=== PATIENT | female | born 1955 ===

== ENCOUNTER 2016-10-06 05:40 | Day surgery (SDC) | payer MEDICAID ==
[2016-10-06] VITALS (8 sets, daily range): BP systolic 103–134; BP diastolic 55–75; PULSE 70–88; RESP 15–20; O2SAT 96–100
[~2016-10-06] VITALS: Ht 157.5 cm; Wt 77.8 kg
[~2016-10-06 05:40] MED LIST: ALBU8.5H2 INHALATION; CHOL10008 PO; GABA600T2 PO; OXYC-466 PO
[2016-10-06] MEDS ORDERED: Ondansetron 2 mg/mL 2 mL Inj ONE (05:41)
[2016-10-06] MEDS ORDERED: fentaNYL-PF 50 mCg/mL 2 mL Inj ONE (05:41)
[2016-10-06] MEDS ORDERED: Propofol 10,000 mCg/mL 20 mL Inj ONE (05:41)
[2016-10-06] MEDS ORDERED: Dexamethasone 4 mg/mL Inj ONE (05:41)
[2016-10-06] MEDS ORDERED: Lactated Ringer's 1,000 ML IV ONE ×2 (05:44→07:14)
[2016-10-06] MEDS ORDERED: Lactated Ringer's 500 ML IV PRN (07:14)
[2016-10-06] MEDS ORDERED: Lactated Ringer's 1,000 ML IV SCH (07:14)
[2016-10-06] MEDS ORDERED: HYDROmorphone 1 mg/mL Inj IVPUSH PRN (07:15)
[2016-10-06] MEDS ORDERED: EPHEDrine Sulfate 50 mg/mL Inj IVPUSH PRN (07:15)
[2016-10-06] MEDS ORDERED: fentaNYL-PF 50 mCg/mL 2 mL Inj IVPUSH PRN (07:15)
[2016-10-06] MEDS ORDERED: Labetalol 5 mg/mL 4 mL Inj IV PRN (07:15)
[2016-10-06] MEDS ORDERED: hydrALAZINE 20 mg/mL Inj IVPUSH PRN (07:15)
[2016-10-06] MEDS ORDERED: Atropine 0.4 mg/mL Inj IVPUSH PRN (07:15)
[2016-10-06] MEDS ORDERED: MetoCLOpramide 5 mg/mL 2 mL Inj IVPUSH PRN (07:15)
[2016-10-06] MEDS ORDERED: Ondansetron 2 mg/mL 2 mL Inj IVPUSH PRN (07:15)
[2016-10-06] MEDS ORDERED: Phenylephrine 10,000 mCg/mL Inj IVPUSH PRN (07:15)
--- NOTE | 2016-10-06 07:16 | PCM.HPANE ---
Patient Data Surgeon Admitting Provider: Attending Provider:Brady Crum DO Primary Care Physician:Jeane Other Provider:Loreto Partida Anesthesia Reason for Visit Left Knee Adhesive Capsulitis Ht/WT & BMI Height (Feet): 5 Height (Inches): 2.00 Weight (Kilograms): 77.8 Body Mass Index 31.00 Allergies Coded Allergies: ibuprofen (Verified Allergy, Severe, rash, 10/01/16) Past Anesthesia History Anesthesia History: Denies:: Abnormal Airway, Anesthesia Reactions, Difficult Intubation, Fam Anesthesia Reaction, Fam Malignant Hypertherm, Malignant Hyperthermia Diabetes History Hx Diabetes?: No MRSA MRSA: No Medications Hypertension Medication: No Home Meds Incl Beta Jimmy: No Active Scripts oxyCODONE-Acetaminophen 10-325 mg 1 Each Tablet1-2 Tablet PO Q6H PRN For Pain # 30 TABLET Ref 0 Prov:Trish Isaacs MD 08/26/16 Reported Medications Cholecalciferol (Vitamin D3) (Vitamin D3)1,000 Unit Tab.chew1,000 Unit PO DAILY 07/01/16 Gabapentin 600 Mg [id number] Mg PO TID Ref 0 07/01/16 Albuterol HFA (Proair HFA)8.5 Gm Hfa.aer.ad2 Puffs INHALATION Q4H PRN For Shortness of Breath #1 INHALER 07/01/16 Discontinued Reported Medications Meloxicam 15 Mg Bzsyfj47 Mg PO DAILY 30 Days Ref 0 10/01/16 Quetiapine Fumarate (Seroquel)50 Mg Loxtmy25 Mg PO BID Ref 0 07/01/16 Omeprazole 40 Mg Capsule.dr40 Mg PO DAILY Ref 0 07/01/16 Melatonin (Melatonin 1 mg Tablet)1 Each Tablet1-3 Mg PO HS Ref 0 07/01/16 Fluticasone Propionate (Fluticasone Propionate Nasal)16 Gm Onaka.susp2 Onaka NS BID PRN For Congestion #16 GM Ref 0 07/01/16 Cyclobenzaprine 10 Mg Yibmlx71-65 Mg PO HS PRN Spasm Ref 0 07/01/16 Butalbital/Acetamin/Caff 50-300-40 mg 1 Each Capsule1-2 Capsule PO Q4H PRN migraines Ref 0 NTE 6cap/24hr 07/01/16 Discontinued Scripts oxyCODONE 5 Mg Tablet5 Mg PO Q4H PRN For Severe Pain #30 TABLET Prov:Ebonie Riley PA-C 07/09/16 oxyCODONE-Acetaminophen 10-325 mg 1 Each Tablet1 Tab PO Q3H PRN For Pain #90 TABLET Prov:Ebonie Riley PA-C 07/09/16 [Aspirin] 325 MG TABLET No Conflict Kcyzl903 Mg PO BID 40 Days Prov:Ebonie Riley PA-C 07/09/16 History History of ENT Problems?: Yes HEENT History: Denies:: Abnormal Airway Cataracts Difficult Intubation Dysphagia Hearing Problem Sinus Problem TMJ Denture Type: Full- Upper Partial- Lower Hx of Heart Problems?: Yes Cardiovascular History: Denies:: AICD Atrial Fibrillation Chest Pain Congestive Heart Failure Heart Murmur Hypertension Irregular Heartbeat Pacemaker Valvular Heart Disease Other Cardiac History: c/of bruising easily Hx of Respiratory Problem?: Yes Respiratory History: Positive for:: Asthma Use of Inhalers / NEBS Denies:: COPD Cough Hemoptysis Oxygen Administration Pneumonia Tuberculosis Use of C-PAP Machine Hx Neurologic Problems?: Yes Neurological History: Positive for:: Headaches (migraines post concussion) Denies:: CVA Dementia Multiple Sclerosis Parkinson's Disease Other Neurological Pertinent: HX OF CONCUSSION FROM FALL 04/2016 IDIOPATHIC PERIPHERAL NEUROPATHY Hx of GI Problems?: Yes Gastrointestinal History: Positive for:: Gall Bladder Disease (S/P CHLOE) Gastroesphageal Reflux (prior hx of h pylori ) Heartburn Denies:: Cirrhosis Diverticulitis Gastrointestinal Bleeding Hiatal Hernia Rectal Bleeding Hx of Problems?: No Genitourinary History: Denies:: Kidney Stones Urinary Tract Infection Female Hx: Denies:: Currently (S/P C/S) Endometriosis Pelvic Inflammatory Problems with Breasts? Skin History: Denies:: History Skin Disorders? Pressure Ulcers Hx Musculoskeletal Problems?: Yes Musculoskeletal History: Positive for:: Back Injury (chronic back pain ) Degenerative Joint Joint Replacement (S/P LT TKA LT KNEE ADHESIVE CAPSULITIS=CURRENT PROBLEM) Musculoskeletal Trauma (S/P LT KNEE SCOPE) Osteoarthritis Denies:: Systemic Lupus Hx of Psycho/Social Problems?: Yes Psycho Social History: Positive for:: Anxiety Bipolar Disorder Denies:: Hx Depression Hx Surgeries?: Yes (left knee scope, chloe, c section,LT TKA) Hx Any Other Health Problems?: Yes Other History: Denies:: Cancer Endocrine Disease Hospitalization Thyroid Disease History Blood Transfusions: Denies:: Blood Transfusions Hx Diabetes: No Hx Alcohol Use: NoHx Substance Use: No Smoking Status: Former Smoker Have You Smoked inLast 12 mo: No Stop/Bang S-Snoring: Do You Snore Loudly: No T-Tired: feel tired, fatigued: No O-Obsered: Observed not breath: No P-Blood Pressure: treated: No B- Body Mass Index > 35 kg/m2: No A- Age over 50: Yes N- Neck Large Circumference: No G- Gender Male: No TOMA Total Score: 1 TOMA Risk Assessment: Low Risk, <3 Yes Risk Assessment Category Category 1A: Patient has history of documented sleep apnea, and HAS NOT received any narcotic, sedative or anesthesia administration during this stay. Category 1B: Patient has history of documented sleep apnea, and HAS received any narcotic , sedative or anesthesia administration during this stay Category 2: Patient has SUSPECTED Obstructive Sleep Apnea, and HAS received any narcotic , sedative or anesthesia administration during this stay. Category 3: Patient has SUSPECTED Obstructive Sleep Apnea and HAS NOT received narcotic, sedative or anesthesia administration during this stay. Category 4: Outpatient in Procedural Areas with known sleep apnea or who screen positive for High Risk via the STOP/BANG questionnaire. Exam Exam Vital Signs Vital Signs Date Time Temp Pulse Resp B/P Pulse Ox O2 Delivery O2 Flow Rate FiO2 10/06/16 06:05 36.4 78 18 134/75 98 Room Air General Appearance: Alert, Oriented X3, Cooperative, No Acute Distress HEENT/AIRWAY: MP 2, Other (no upper teeth, lower teeth not loose) Lungs: Clear to Auscultation, Normal Air Movement Heart: Exam Unremarkable, Regular Rate/Rhythm, No Murmurs/Rubs/Gallops Meds/Labs/Diagnostics Admission Meds Current Medications Lactated Ringer's (Lr) 1,000 ml @ ud STK-MED ONCE IV Last administered on 10/06t 05:44; Start 10/06/16 at 05:44; Stop 10/06/16 at 05:45; Status DC Plan Impression Patient chart reviewed, patient interviewed and anesthestic plan with risks, benefits, and alternatives discussed, and informed consent obtained. NPO Status: MN ASA Physical Status: ASA2 Mod Systemic Disease Anesthetic Plan: GA Bene/Risks/Altern/Consents: Yes HP Complete Prior to Induction: Yes Hejtmanek,Brady R MD Oct 06, 2016 06:59
[2016-10-06] MEDS ORDERED: oxyCODONE-Acetamin 5-325 mg Tablet PO PRN (07:55)
--- NOTE | 2016-10-06 07:57 | PCM.ANEP1 ---
Post Anesthesia Phase 1 PACU Phase 1 Assessment Vital Signs Vital Signs Date Time Temp Pulse Resp B/P Pulse Ox O2 Delivery O2 Flow Rate FiO2 10/06/16 07:45 74 18 103/55 99 Room Air 10/06/16 07:42 36.6 70 18 107/61 100 Simple Mask 8 10/06/16 06:05 36.4 78 18 134/75 98 Room Air Anesthetic Administered: GA Level of Alertness: Awake, talking JONES's with Equal Strength: Yes Pain: No Nausea or Vomiting: No Oxygen Delivery: Simple Mask Lungs: Clear to Auscultation, Normal Air Movement Brady Ovalle MD Oct 06, 2016 07:57
--- NOTE | 2016-10-06 07:59 | PCM.ANEP2 ---
Post Anesthesia Evaluation ASA/CMS Post Anesthesia VS in Patient's Normal Range?: Yes Resp Stable; Airway Patent?: Yes CV Function & Hydration Stable: Yes Mental Status Recovered?: Yes Pain control Satisfactory?: Yes N/V Control Satisfactory?: Yes Brady Ovalle MD Oct 06, 2016 07:59
--- NOTE | 2016-10-06 08:10 | OP ---
[address] [address] OPERATIVE REPORT PATIENT: TIFFANY DOMINGO : 1955 MR#: [id number] ADMIT: 10/06/2016 JOB ID: [id number] DATE OF SURGERY: 10/06/2016 PREOPERATIVE DIAGNOSIS(ES): Left knee adhesive capsulitis, status post total knee arthroplasty. POSTOPERATIVE DIAGNOSIS(ES): Left knee adhesive capsulitis, status post total knee arthroplasty. PROCEDURE: Left knee manipulation under anesthesia. SURGEON: Brady Crum DO PAPER BAG MAKING MACHINIST: None. INDICATION: The patient is a 60-year-old female who is status post left total knee arthroplasty on June 27, 2016, who has had difficulty with her range of motion and stiffness despite physical therapy. We discussed treatment options for this and she wished to proceed with a manipulation under anesthesia. We discussed the risks, benefits, and possible complications of the procedure. All questions were answered. She wished to proceed. PROCEDURE IN DETAIL: The patient is brought to the operating room. She was given an LMA general anesthetic. Her range of motion was checked under anesthesia, and was actually fairly good, about 0-115 degrees. I did a gentle manipulation under anesthesia and was able to get her to 0-140 degrees range of motion, and help mobilize her patella. She tolerated the procedure well. Blood loss was none. POSTOPERATIVE PROTOCOL: Will have the patient continue to work on her range of motion and work aggressively on this. Follow up in the clinic in two weeks for recheck. She was given a prescription for Percocet, #90, to be dispensed 45 for a week, with no refills, and will follow up and discuss further pain control at her postop visit.
== END 2016-10-06 12:12 | disposition home or self-care (01) ==
LOC: SAS 05:40
PROVIDERS: ATTEND Orthopaedic Surgery
DX: T84.89XS Other specified complication of internal orthopedic prosthetic devices, implants and grafts, sequela (principal); J45.909 Unspecified asthma, uncomplicated; G60.9 Hereditary and idiopathic neuropathy, unspecified
CPT/HCPCS: 27570; J1100; J2405; J7120

== ENCOUNTER 2017-04-11 22:49 | Emergency (ER) | payer MEDICAID ==
[~2017-04-11] VITALS: Ht 162.6 cm; Wt 68.2 kg
[2017-04-11 23:16] VITALS: BP 112/64; PULSE 64; RESP 19; O2SAT 100
--- NOTE | 2017-04-11 23:23 | ED.REPORT ---
HPI-Abd Pain F 40 and Over Date of Service Apr 11, 2017 ED Provider: Dr. Joe Moreau The patient is a 61 year old female who presents to the ED due to a rectal prolapse causing severe abdominal pain and cramping. The pt cannot sit down without pain. She c/o associated rectal bleeding. Pt denies any other symptoms including fever, chills, incontinence, dysuria, headache, difficulty breathing, extremity pain, weakness, and numbness. Nursing Notes Stated Complaint: ABDOMINAL PAIN Chief Complaint: Female Abdominal Pain Nursing Notes Reviewed: Yes Allergies: Coded Allergies: ibuprofen (Verified Allergy, Severe, rash, 10/01/16) Scheduled Cholecalciferol (Vitamin D3) (Vitamin D3) 1,000 Unit Tab.chew 1,000 UNIT PO DAILY Gabapentin (Gabapentin) 600 Mg Tablet 600 MG PO TID Scheduled PRN Albuterol HFA (Proair HFA) 8.5 Gm Hfa.aer.ad 2 PUFFS INHALATION Q4H PRN PRN For Shortness of Breath oxyCODONE-Acetaminophen 10-325 mg (oxyCODONE-Acetaminophen 10-325 mg) 1 Each Tablet 1-2 TABLET PO Q6H PRN PRN For Pain General Time Seen by MD: 23:22 Chief Complaint Other (rectal prolapse) Hx Obtained From: Patient Arrived By: Ambulance Sudden in Onset?: Yes Pertinent Negative: Pt denies other symptoms Recent Healthcare: No recent doctor visit, No recent hospitalization Similar Sx Previous: No Past Medical History Past Medical History Reports: Asthma Reports: Migraines Past Surgical History Reports: , Cholecystectomy Reports: Knee replacement Smoking History Former Smoker Ambulatory Status Walker Review of Systems Constitutional: Denies: Chills, Fever Respiratory: Denies: Shortness of breath Female: Denies: Dysuria, Incontinence Complete sys rev & neg: except as marked. Skin: Reports Swelling (rectal prolapse) Neurologic: Denies: Headache, Numbness, Weakness Physical Exam Vital Signs Vital Signs (First) Date Time Temp Pulse Resp B/P Pulse Ox O2 Delivery O2 Flow Rate FiO2 04/11/17 23:16 36.9 64 19 112/64 100 Room Air Initial VS: Reviewed General/Constitutional: Awake, Alert, Cooperative Distress / Hydration: Positive: Distress mild Respiratory / Chest: Atraumatic, Breath sounds NL, Breath sounds = bilat Cardiovascular: Heart rate NL, Regular rhythm, Heart sounds NL Abdomen: Atraumatic, Non-tender Back: Atraumatic, Full range of motion, Non-tender Head / Eyes: Atraumatic, Normocephalic Skin: Atraumatic, Color NL, No rash Rectum / Perineum Abnl: Positive: Rectal prolapse present Upper Extremity / MS: Atraumatic, Full range of motion, No deformity Wrist / Hand: Atraumatic, Full range of motion, No deformity Lower Extremity / Pelvis / MS: Atraumatic, Full range of motion, No deformity, Neurologic intact Ankle / Foot: Atraumatic, Full range of motion, No deformity Interpretation & Diagnostics Lab Results Interpretation Result Diagram: 04/11/17 2345 04/11/17 2345 Test 04/11/17 23:45 White Blood Count 4.7th/mm3 (3.8-10.1) Red Blood Count 3.85mil/mm3 (3.90-5.20) Hemoglobin 10.3g/dL (12.0-15.6) Hematocrit 32.1% (35.0-46.0) Mean Corpuscular Volume 83.4fL (81-100) Mean Corpuscular Hemoglobin 26.8pg (27.0-35.0) Mean Corpuscular Hemoglobin Concent 32.1% (32.0-37.0) Red Cell Distribution Width 13.9% (12.3-15.4) Platelet Count 260bil/L (150-400) Neutrophils (%) (Auto) 61.9% (40-74) Lymphocytes (%) (Auto) 22.6% (14-46) Monocytes (%) (Auto) 10.5% (4-12) Eosinophils (%) (Auto) 4.1% (0-5) Basophils (%) (Auto) 0.9% (0-3) Sodium Level 144mEq/L (134-144) Potassium Level 4.0mEq/L (3.5-5.2) Chloride Level 107mEq/L (97-108) Carbon Dioxide Level 24mmol/L (18-29) Blood Urea Nitrogen 10mg/dL (8-27) Creatinine 0.65mg/dL (0.57-1.00) Estimat Glomerular Filtration Rate 133mL/min (>59) Glucose Level 103mg/dL (60-99) Calcium Level 8.7mg/dL (8.5-10.1) Total Bilirubin 0.2mg/dL (0.0-1.2) Aspartate Amino Transf (AST/SGOT) 18U/L (0-50) Alanine Aminotransferase (ALT/SGPT) 10U/L (0-32) Alkaline Phosphatase 49U/L (25-165) Total Protein 6.4g/dL (6.4-8.4) Albumin 3.8g/dL (3.4-5.0) CT Abd / Pelvis Interpretation IMPRESSION: mild rectal prolapse Interpretation / Wet Read by: Interpret - Radiologist Re-Eval/Medical Decision Med Decision/Clinical Course 1120: Rectal prolapse easily reduced. 1229: rectal prolapse remains reduced but she is still having moderate to severe RLQ pain Re-Evaluation/Progress #1: Time of Eval: 23:30 Re-Evaluation/Progress Note: Rectal prolapse easily reduced. Re-Evaluation/Progress #2: Time of Eval: 12:29 Patient Status: Condition improved Re-Evaluation/Progress Note: Pt rechecked. Rectal prolapse remains reduced but she is still having moderate to severe RLQ pain. Plan for scan. Consultation : Referral / Consult Name: Lenard Lopez MD Call Returned at: 01:17 Senior Partner: Agrees with eval, Agrees with plan Note: Case discussed. Dr. Lopez does not recommend surgery at the moment. Counseled Regarding: Diagnosis, Lab results, Need for follow-up, When/why to return to ED Discharge & Departure Primary Impression: Rectal prolapse Disposition: Home Discharge Condition All VS Reviewed: Yes Condition: Stable Patient Instructions: Rectal Prolapse (ED) Additional Instructions: Thank you for entrusting us with your care today. You have a rectal prolapse. Call the surgical clinic to set up a follow up appointment as soon as possible. Follow a liquid diet for the next 48 hrs. Take MiraLAX twice daily to prevent constipation. You may take 1-2 Percocet every 6 hours as directed for severe pain. Do not drive or drink alcohol while taking the Percocet. Promptly reduce the prolapse if it happens again. Return to the Emergency Department if you experience any new or worsening symptoms. I hope you feel better soon! Referrals: NOPCP (PCP) Lenard Lopez MD [facility] Scribe Attestation Portion of this note were transcribed by Manasa Naidu. I, Dr. Moreau, personally performed the history, physical exam, and medical decision-making: I reviewed and confirmed the accuracy for the information in the transcribed note. Signed by: mariangel Inman, 04/12/17 0200 copies to: Lenard Lopez MD; [facility] Joe Moreau DO Apr 11, 2017 23:22 Manasa Naidu Apr 11, 2017 23:28
[2017-04-11] MEDS ORDERED: Ondansetron 2 mg/mL 2 mL Inj IVPUSH PRN (23:30)
[2017-04-11] MEDS ORDERED: Lidocaine 4% 4 mL Laryng-O-Jet Top Soln MUC_MEMBRM ONE (23:30)
[2017-04-11 23:49] VITALS: BP 112/69; PULSE 80; RESP 16; O2SAT 99
[2017-04-11] MEDS: HYDROmorphone 0.5 mg/0.5 mL iSecure Syringe IVPUSH PRN (23:49)
[2017-04-12 00:08] LABS: BASOPHILS % (AUTO) 0.9 % (0-3); EOSINOPHILS % (AUTO) 4.1 % (0-5); MONOCYTES % (AUTO) 10.5 % (4-12); Mean Corpuscular Hemoglobin 26.8 pg (27.0-35.0); Mean Corpuscular Volume 83.4 fL (81-100); NEUTROPHILS % (AUTO) 61.9 % (40-74); Platelet Count 260 bil/L (150-400)
[2017-04-12] MEDS ORDERED: Sodium Chloride LOK Flush 10 mL Syringe IVFLUSH SCH (00:30)
[2017-04-12] MEDS: HYDROmorphone 0.5 mg/0.5 mL iSecure Syringe IVPUSH PRN (01:26)
[2017-04-12] MEDS ORDERED: _oxyCODONE/APAP 5-325 mg Tablet PO PRN (01:40)
[2017-04-12 02:21] VITALS: BP 118/70; PULSE 82; RESP 17; O2SAT 100
--- NOTE | 2017-04-12 08:24 | DRSVH ---
PROCEDURE: CT ABDOMEN AND PELVIS WITH CONTRAST ([id number]) INDICATIONS: RLQ pain, rectal prolapse now reduced TECHNIQUE: After the administration of intravenous contrast, 5 mm thick sections acquired from the diaphragm to the symphysis. 5 mm coronal and sagittal reformats were acquired. For radiation dose reduction, the following was used: automated exposure control, adjustment of mA and/or kV according to patient siz e. COMPARISON: None. FINDINGS: Image quality: Excellent. ABDOMEN: Lung bases: There is a lingular scar or atelectasis. Heart size is normal. Small hiatal hernia. Solid organs: Liver and spleen are normal in size and enhancement. Gallbladder is surgically absent . Biliary system is non dilated. Pancreas enhances normally. No adrenal nodules. Kidneys demonstr ate normal size and enhancement, without hydronephrosis. Peritoneum and bowel: Bowel loops demonstrate normal wall thickness and caliber. Appendix is normal . No free fluid or air. Nodes and vessels: No retroperitoneal or mesenteric adenopathy by size criteria. Aorta and inferior vena cava are normal in size. Miscellaneous: There is a small fat-containing ventral hernia. PELVIS: Genitourinary: Bladder wall thickness is normal. Miscellaneous: No inguinal hernias or adenopathy. Bones: No suspicious bony lesions. No vertebral body compression fractures. IMPRESSION: 1. Normal appendix. No CT findings to explain right lower quadrant pain. 2. A small fat-containing ventral hernia. 3. Small hiatal hernia. No significant discrepancy with the steward/stewardess night radiology preliminary report. Dictated by: Nena Keane M.D. on 04/12/2017 at 8:15 Approved by: Nena Keane M.D. on 04/12/2017 at 8:22
== END 2017-04-12 02:30 | disposition home or self-care (01) ==
LOC: SED 22:49 → EDBD 22:49 → SED 04-12 02:30
DX: K62.3 Rectal prolapse (principal); Z79.891 Long term (current) use of opiate analgesic; Z88.6 Allergy status to analgesic agent
CPT/HCPCS: 36415; 74177; 80053; 85025; 96374; 96375; 99284; J1170; J2405; Q9967

== ENCOUNTER 2017-04-15 15:23 | Emergency (ER) | payer MEDICAID ==
[~2017-04-15] VITALS: Ht 165.1 cm; Wt 74.5 kg
[2017-04-15 15:54] VITALS: BP 123/81; PULSE 82; RESP 18; O2SAT 97
--- NOTE | 2017-04-15 15:57 | ED.REPORT ---
HPI-GI Bleed Date of Service Apr 15, 2017 ED Provider: Dr. Bairon Velazquez MD A 61 year old female who presents to the ED due to a rectal prolapse causing severe abdominal pain and cramping that began earlier this afternoon. Associated symptoms include mild rectal bleeding and pain. Patient was seem in the ED on 04/11 for identical symptoms and she was referred to surgery. Patient presents today because the rectum has prolapsed again and her pain is "unbearable". She recently had an appointment with Dr. Zain Lombardi and has a surgery scheduled but is currently requesting an earlier operation date. She denies taking any OTC medication for her pain. Patient denies any recent fever or vomiting. She says that she has Percocet prescribed regularly but does not have any at this time and cannot get them refilled for the next 72 hours. Nursing Notes Stated Complaint: RECTAL BLEEDING Chief Complaint: Female Abdominal Pain Nursing Notes Reviewed: Yes Allergies: Coded Allergies: ibuprofen (Verified Allergy, Severe, rash, 10/01/16) Scheduled Cholecalciferol (Vitamin D3) (Vitamin D3) 1,000 Unit Tab.chew 1,000 UNIT PO DAILY Gabapentin (Gabapentin) 600 Mg Tablet 600 MG PO TID Scheduled PRN Albuterol HFA (Proair HFA) 8.5 Gm Hfa.aer.ad 2 PUFFS INHALATION Q4H PRN PRN For Shortness of Breath oxyCODONE-Acetaminophen 10-325 mg (oxyCODONE-Acetaminophen 10-325 mg) 1 Each Tablet 1-2 TABLET PO Q6H PRN PRN For Pain General Time Seen by Provider: 15:58 Chief Complaint Chief Complaint: Other (Rectal bleeding) Hx Obtained From: Patient Arrived By: Walk-in Onset Occurred: 1 - 4 hours ago Symptom Duration: Since onset Progression Since Onset: Unchanged Location: : Abdomen lower Quality: Cramping Radiation: : Does not radiate Severity: Current: Moderate Severity: Maximum: Moderate Associated with: Reports: Rectal pain, Denies: Fever Pertinent Negative: Pt denies other symptoms Recent Healthcare: No recent hospitalization, Recent doctor visit Past Medical History Past Medical History Reports: Asthma Reports: Migraines Past Surgical History Reports: , Cholecystectomy Reports: Knee replacement Smoking History Former Smoker Social History Other Social History: Good social support, Local resident Ambulatory Status Walker Review of Systems Rectal bleeding Rectal pain Constitutional: Denies: Fever GI: Reports: Abdominal pain, Denies: Vomiting Complete sys rev & neg: except as marked. Physical Exam Initial Vital Signs Vital Signs (First) Date Time Temp Pulse Resp B/P Pulse Ox O2 Delivery O2 Flow Rate FiO2 04/15/17 15:54 37.0 82 18 123/81 97 Room Air Initial VS: Reviewed Head / Eyes: Atraumatic, Normocephalic, PERRL Neck: Supple, Non-tender, Full range of motion Extremities: Vascular intact, Neuro intact, No swelling, No tenderness Skin: Warm, Dry, No cyanosis Neurologic: Alert, Oriented, Nonfocal Psychiatric: Mood/affect normal, Behavior normal, Normal thought content General/Constitutional: Awake, Alert, No acute distress Respiratory / Chest: Atraumatic, Breath sounds NL, Breath sounds = bilat, No respiratory distress Cardiovascular: Heart rate NL, Regular rhythm, Heart sounds NL Abdomen: Atraumatic, Soft, No guarding, No rebound Tenderness/Guarding/Rebound: Positive: Tender LLQ... (Mild), Tender LUQ... ( Mild) Rectum / Perineum: Atraumatic RECTUM: Successfully reduced prolapse Interpretation & Diagnostics Lab Results Interpretation Test 04/15/17 15:57 Hold Purple Top Tube Received (Received) Hold Blue Top Tube Received (Received) Hold [place] Top Tube Received (Received) Procedures Reduction of prolapsed rectum 1608 I performed the procedure. With gloved hands I was able to apply direct pressure to the prolapsed rectum. This was moderately uncomfortable for the patient. Rectum successfully reduced. Patient tolerated the procedure without complication. Condition improved. Re-Eval/Medical Decision Re-Evaluation/Progress : Time of Eval: 16:06 Re-Evaluation/Progress Note: Patient is rechecked. They are informed of her results and diagnosis. All questions are addressed at this time. They understand and agree with the intended treatment plan. Consultation : Referral / Consult Name: Zain Lombardi MD Call Returned at: 16:18 Call Person: Agrees with eval, Agrees with plan Note: Unable to take patient into the OR sooner. Counseled Regarding: Diagnosis, Need for follow-up, When/why to return to ED Discharge & Departure Impression: Primary Impression: Rectal prolapse Disposition: Home Discharge Condition All VS Reviewed: Yes Condition: Improved Patient Instructions: Rectal Prolapse (ED) Additional Instructions: Thank you for trusting us with you care this evening. We were able to successfully reduce your rectal prolapse today. is unable to move your operation to a sooner date, so please keep your scheduled appointment. I recommend that you try to limit your movement as much as possible as this will cause a reoccurrence of the rectal prolapse. Your emergency department evaluation is reassuring that there is no emergent cause for concern at this time. Follow up with your primary care physician in the next 1-2 days for a recheck. Please return to the emergency department for any new or worsening symptoms including any high fevers, shaking chills, nausea, vomiting, worsening pain or bleeding. Referrals: NOPCP (PCP) Zain Lombardi MD [facility] Scribe Attestation Portions of this note were transcribed by Lucy Proctor. I, Dr. Velazquez personally performed the history, physical exam and medical decision-making; I reviewed and confirmed the accuracy of the information in the transcribed note. Signed by: Argelia Pugh, 04/15/17 1627. Bairon Velazquez MD Apr 15, 2017 15:57 LUCY PROCTOR Apr 15, 2017 16:05
[2017-04-15] MEDS ORDERED: oxyCODONE-Acetamin 10-325 mg Tablet PO ONE (16:35)
[2017-04-15 16:46] VITALS: BP 138/84; PULSE 60; RESP 18; O2SAT 95
[2017-04-27] MEDS ORDERED: MELA1TAB9 PO (14:10)
[2017-04-27] MEDS ORDERED: POLY17PO6 PO (14:10)
[2017-04-27] MEDS ORDERED: QUET25TA PO (14:10)
[2017-04-27] MEDS ORDERED: METH4TAB12 PO (14:10)
[2017-04-27] MEDS ORDERED: OMEP10CA4 PO (14:10)
[2017-04-27] MEDS ORDERED: CYCL5TAB PO (14:10)
[2017-04-27] MEDS ORDERED: FLUT9.9S NS (14:10)
== END 2017-04-15 16:53 | disposition home or self-care (01) ==
LOC: EDUNIT# 15:23 → SED 15:23 → EDBD 15:23 → SED 16:53
DX: K62.3 Rectal prolapse (principal); J45.909 Unspecified asthma, uncomplicated; Z87.891 Personal history of nicotine dependence; Z88.6 Allergy status to analgesic agent
CPT/HCPCS: 99284; G0480

== ENCOUNTER 2017-04-29 09:10 | Day surgery (SDC) | payer MEDICAID ==
[~2017-04-29] VITALS: Ht 157.5 cm; Wt 74.8 kg
[~2017-04-29 09:10] MED LIST changes: +0.9% Sodium Chloride 1,000 ML IV SCH; +CYCL5TAB PO; +FLUT9.9S NS; +MELA1TAB9 PO; +METH4TAB12 PO; +OMEP10CA4 PO; +POLY17PO6 PO; +QUET25TA PO; +Sodium Chloride LOK Flush 10 mL Syringe IV PRN; +fentaNYL-PF 50 mCg/mL 2 mL Inj IVPUSH PRN
[2017-04-29 09:52] VITALS: BP 106/63; PULSE 69; RESP 18; O2SAT 100
[2017-04-29 11:56] VITALS: BP 93/63; PULSE 78; RESP 15; O2SAT 95
[2017-04-29 12:04] VITALS: BP 101/67; PULSE 76; RESP 15; O2SAT 96
[2017-04-29 12:14] VITALS: BP 100/61; PULSE 75; RESP 15; O2SAT 96
--- NOTE | 2017-04-29 12:54 | ENDO ---
[address] [address] ENDOSCOPY PROCEDURE PATIENT: TIFFANY DOMINGO : 1955 MR#: [id number] ADMIT: 04/29/2017 JOB ID: [id number] DATE OF SERVICE: 04/29/2017 PREOPERATIVE DIAGNOSIS: Rectal prolapse. POSTOPERATIVE DIAGNOSIS: Rectal prolapse. PROCEDURE: Incomplete colonoscopy. SURGEON: Zain Lombardi MD INDICATIONS: 61-year-old female with rectal prolapse. She has seen Dr. Diaz in consultation and a colonoscopy was requested. FINDINGS: She had a very poor prep. Because of the prep primarily, I did not do a complete colonoscopy. I do believe I got to the hepatic flexure. Upon withdrawing the scope, there was some irritated rectal mucosa and diverticulosis, but otherwise no abnormalities. Retroflexed views of the rectum although limited by the prep, revealed no gross abnormalities. She did have a very lax anal sphincter. DESCRIPTION OF PROCEDURE: The procedure and sedation plan was discussed with the patient and nursing staff, and a procedural time-out was held. She received 6 mg of Versed and 100 mcg of fentanyl. A digital rectal exam was performed revealing a patulous sphincter. The Olympus PCFH-190L video colonoscope was then passed transanally and was advanced; I am guessing as far as the hepatic flexure but as stated above because of her very poor prep, I then withdrew it. No abnormalities were then identified other than diverticulosis. No biopsies were taken. No apparent complications. IMPRESSION: 1. Rectal prolapse. 2. Diverticulosis. 3. Poor preparation. PLAN: She will return to see Dr. Harshad Diaz. cc: DO ANA PAULA Auguste
== END 2017-04-29 23:59 | disposition home or self-care (01) ==
LOC: END 09:10
PROVIDERS: ATTEND Surgery
DX: K62.3 Rectal prolapse (principal); K57.30 Diverticulosis of large intestine without perforation or abscess without bleeding; Z79.899 Other long term (current) drug therapy; Z87.891 Personal history of nicotine dependence
CPT/HCPCS: 45378; 99153; G0500; J2250; J3010; J7030

== ENCOUNTER 2017-06-08 05:41 | Inpatient (IN) | payer MEDICAID ==
[2017-06-08] VITALS (14 sets, daily range): BP systolic 101–150; BP diastolic 60–90; PULSE 57–90; RESP 11–23; O2SAT 96–100
[~2017-06-08] VITALS: Ht 157.5 cm; Wt 71.0 kg
[2017-06-08] MEDS: Lactated Ringer's 1,000 ML IV SCH ×3 (05:00→07:35)
[~2017-06-08 05:41] MED LIST changes: -0.9% Sodium Chloride 1,000 ML IV SCH; +Bupivacaine Liposome 1.3% 20 mL Inj INFILTRATE ONE; -CYCL5TAB PO; +CeFAZolin Inj 2 GM in IV Premix 1 EACH IV ONE; +FLUT16SP NS; -FLUT9.9S NS; -MELA1TAB9 PO; -METH4TAB12 PO; -OMEP10CA4 PO; +OMEP20TA86 PO; -OXYC-466 PO; +OXYC1TAB24 PO; -POLY17PO6 PO; -QUET25TA PO; +RAME8TAB10 PO; -Sodium Chloride LOK Flush 10 mL Syringe IV PRN; +Vancomycin 1 Gm/200 mL NS Premix IV ONE; -fentaNYL-PF 50 mCg/mL 2 mL Inj IVPUSH PRN
[2017-06-08] MEDS ORDERED: CeFAZolin 2 Gm/50 mL D5W Duplex Bag IV ONE (06:03)
[2017-06-08] MEDS ORDERED: 0.9% Sodium Chloride 100 ML ONE (07:16)
[2017-06-08] MEDS ORDERED: Tranexamic Acid 100 mg/mL 10 mL Inj ONE (07:16)
[2017-06-08] MEDS ORDERED: Bupivacaine Liposome 1.3% 20 mL Inj ONE (07:21)
[2017-06-08] MEDS ORDERED: Lactated Ringer's 500 ML IV PRN (08:06)
[2017-06-08] MEDS ORDERED: Lactated Ringer's 1,000 ML IV SCH (08:06)
[2017-06-08] MEDS ORDERED: fentaNYL-PF 50 mCg/mL 2 mL Inj IVPUSH PRN (08:10)
[2017-06-08] MEDS ORDERED: Dexamethasone 4 mg/mL Inj IVPUSH PRN (08:10)
[2017-06-08] MEDS ORDERED: Phenylephrine 10,000 mCg/mL Inj IVPUSH PRN (08:10)
[2017-06-08] MEDS ORDERED: HYDROmorphone 1 mg/mL Inj IVPUSH PRN ×2 (08:10→09:40)
[2017-06-08] MEDS ORDERED: EPHEDrine Sulfate 50 mg/mL Inj IVPUSH PRN (08:10)
[2017-06-08] MEDS ORDERED: MetoCLOpramide 5 mg/mL 2 mL Inj IVPUSH PRN (08:10)
[2017-06-08] MEDS ORDERED: Ondansetron 2 mg/mL 2 mL Inj IVPUSH PRN ×2 (08:10→09:40)
[2017-06-08] MEDS ORDERED: 0.9% Sodium Chloride 10 mL Inj INFILTRATE ONE (08:20)
--- NOTE | 2017-06-08 08:43 | PCM.HPANE ---
Patient Data Date of Service: Jun 08, 2017 Surgeon Admitting Provider: Attending Provider:Brady Crum DO Primary Care Physician:Onelia Ayala DO Other Provider:Loreto Partida Anesthesia Reason for Visit Right Knee Arthritis Ht/WT & BMI Height (Feet): 5 Height (Inches): 2 Weight (Kilograms): 71.2 Body Mass Index 28.00 Allergies Coded Allergies: ibuprofen (Verified Allergy, Severe, rash, 05/28/17) Past Anesthesia History Anesthesia History: Denies:: Abnormal Airway, Anesthesia Reactions, Difficult Intubation, Fam Anesthesia Reaction, Fam Malignant Hypertherm, Malignant Hyperthermia Diabetes History Hx Diabetes?: No MRSA MRSA: No Medications Home Meds Incl Beta Jimmy: No Reported Medications Cholecalciferol (Vitamin D3) (Vitamin D3)1,000 Unit Tab.chew1,000 Unit PO DAILY 05/28/17 oxyCODONE-Acetaminophen 5-325 mg 1 Each Tablet1 Tab PO Q4H PRN For Pain Ref 0 05/28/17 Omeprazole 20 Mg Tablet.dr20 Mg PO DAILY 05/28/17 Gabapentin 600 Mg [id number] Mg PO TID Ref 0 05/28/17 Fluticasone Propionate (Fluticasone Propionate Nasal)16 Gm [place].susp1 [place] NS BID #16 GM Ref 0 05/28/17 Albuterol HFA (Proair HFA)8.5 Gm Hfa.aer.ad2 Puffs INHALATION Q4H PRN For Shortness of Breath #1 INHALER 05/28/17 Discontinued Reported Medications Ramelteon (Rozerem)8 Mg Tablet8 Mg PO DAILY 05/28/17 History History of ENT Problems?: Yes HEENT History: Denies:: Abnormal Airway Cataracts Difficult Intubation Dysphagia Hearing Problem Sinus Problem TMJ Denture Type: Full- Upper Teeth Condition: Broken Teeth (multiple broken or missing lower teeth) Hx of Heart Problems?: No Cardiovascular History: Denies:: AICD Atrial Fibrillation Chest Pain Congestive Heart Failure Heart Murmur Hypertension Irregular Heartbeat Pacemaker Valvular Heart Disease Hx of Respiratory Problem?: Yes Respiratory History: Positive for:: Asthma Pneumonia Use of Inhalers / NEBS Denies:: COPD Cough Hemoptysis Oxygen Administration Tuberculosis Use of C-PAP Machine Hx Neurologic Problems?: Yes Neurological History: Positive for:: Headaches (migraines post concussion) Denies:: CVA Dementia Multiple Sclerosis Parkinson's Disease Hx of GI Problems?: Yes Hx of Problems?: No Genitourinary History: Denies:: Kidney Stones Urinary Tract Infection Female Hx: Denies:: Currently Endometriosis Pelvic Inflammatory Problems with Breasts? Skin History: Positive for:: History Skin Disorders? (RECTAL PROLAPSE) Denies:: Pressure Ulcers Hx Musculoskeletal Problems?: Yes Musculoskeletal History: Positive for:: Back Injury (chronic back pain ) Degenerative Joint Joint Replacement (hx of left total knee, with post op manipulation) Musculoskeletal Trauma (right knee current admission problem) Osteoarthritis Denies:: Systemic Lupus Hx of Psycho/Social Problems?: Yes Psycho Social History: Positive for:: Anxiety Bipolar Disorder Hx Depression Hx Surgeries?: Yes (left total knee, max, c sections) Hx Any Other Health Problems?: Yes Other History: Denies:: Cancer Endocrine Disease Hospitalization Thyroid Disease History Blood Transfusions: Denies:: Blood Transfusions Hx Diabetes: No Hx Alcohol Use: NoHx Substance Use: No Smoking Status: Former Smoker Have You Smoked inLast 12 mo: No Stop/Bang Treated for Sleep Apnea?: No Do You Have a CPAP Machine?: No P-Blood Pressure: treated: No B- Body Mass Index > 35 kg/m2: No A- Age over 50: Yes N- Neck Large Circumference: No G- Gender Male: No TOMA Risk Assessment: Low Risk, <3 Yes Risk Assessment Category Category 1A: Patient has history of documented sleep apnea, and HAS NOT received any narcotic, sedative or anesthesia administration during this stay. Category 1B: Patient has history of documented sleep apnea, and HAS received any narcotic , sedative or anesthesia administration during this stay Category 2: Patient has SUSPECTED Obstructive Sleep Apnea, and HAS received any narcotic , sedative or anesthesia administration during this stay. Category 3: Patient has SUSPECTED Obstructive Sleep Apnea and HAS NOT received narcotic, sedative or anesthesia administration during this stay. Category 4: Outpatient in Procedural Areas with known sleep apnea or who screen positive for High Risk via the STOP/BANG questionnaire. Exam Exam Vital Signs Vital Signs Date Time Temp Pulse Resp B/P Pulse Ox O2 Delivery O2 Flow Rate FiO2 06/08/17 06:08 36.0 70 15 119/76 99 Room Air General Appearance: Alert, Oriented X3, Cooperative HEENT/AIRWAY: MP 2 Lungs: Clear to Auscultation Heart: Exam Unremarkable Meds/Labs/Diagnostics Admission Meds Current Medications Lactated Ringer's 1,000 ml @ 120 mls/hr Q8H20M IV Last administered on 07:35; Start 06/08/17 at 05:00; Stop 06/08/17 at 13:19 Vancomycin/0.9 % Sod Chloride 1000 mg/Premix 200 ml @ 133.333 mls/hr 01 ONCE IV Last administered on 06/08/17 06:31; Start 06/08/17 at 01:00; Stop at 02:29; Status DC Cefazolin Sodium/ Dextrose/Premix (Ancef Inj/IV Premix) 50 ml @ 100 mls/hr 01 ONCE IV Last administered on 06/08/17 08:00; Start 06/08/17 at 01:00; Stop at 01:29; Status DC Bupivacaine HCl 20 ml 20 ml 01 ONCE INFILTRATE Last administered on 06/08/17 08:20; Start 06/08/17 at 01:00; Stop 06/08/17 at 01:01; Status DC Tranexamic Acid/ Sodium Chloride (Cyklokapron Inj/ Normal Saline) 110 ml @ 660 mls/hr Q2H IV Last administered on 06/08/17 07:55; Start 06/08/17 at 01:00; Stop 06/08/17 at 03:09; Status DC Sodium Chloride (Normal Saline Inj) 20 ml STK-MED ONCE INFILTRATE Last administered on 06/08/17 08:20; Start 06/08/17 at 08:20; Stop 06/08/17 at 08:31 ; Status DC Plan Impression Patient chart reviewed, patient interviewed and anesthestic plan with risks, benefits, and alternatives discussed, and informed consent obtained. NPO per Anesth. Guidelines: Yes ASA Physical Status: ASA2 Mod Systemic Disease Anesthetic Plan: Regional Block, Ultra Sound, SAB Bene/Risks/Altern/Consents: Yes HP Complete Prior to Induction: Yes Bryant Holland MD Jun 08, 2017 08:43
[2017-06-08] MEDS: 0.9% Sodium Chloride 1,000 ML IV SCH ×2 (09:40→23:53)
[2017-06-08] MEDS ORDERED: diphenhydrAMINE 25 mg Capsule PO PRN (09:40)
[2017-06-08] MEDS ORDERED: Polyethylene Glycol (PEG) 17 Gm Powder PO PRN (09:40)
[2017-06-08] MEDS ORDERED: Magnesium Hydroxide 10 mL Oral Concentration PO PRN (09:40)
[2017-06-08] MEDS ORDERED: Acetaminophen IV 1,000 MG in IV Premix 1 EACH IV ONE (09:40)
--- NOTE | 2017-06-08 10:20 | DRSVH ---
PROCEDURE: X-RAY RIGHT KNEE, ONE OR TWO VIEWS ([id number]) INDICATIONS: post op TECHNIQUE: 2 view(s) of the knee acquired. COMPARISON: None. FINDINGS: Bones: Patient is status post knee joint arthroplasty. Hardware components are in expected position s. Visualized bony structures are intact. Soft tissues: Overlying postoperative changes are noted. IMPRESSION: Expected postsurgical change for right knee arthroplasty. Dictated by: Tess Mckeon MD, PhD on 06/08/2017 at 9:18 Approved by: Tess Mckeon MD, PhD on 06/08/2017 at 9:19
--- NOTE | 2017-06-08 10:27 | OP ---
[address] [address] OPERATIVE REPORT PATIENT: TIFFANY DOMINGO : 1955 MR#: [id number] ADMIT: 06/08/2017 JOB ID: [id number] DATE OF SURGERY: 06/08/2017 PREOPERATIVE DIAGNOSIS(ES): Right knee degenerative joint disease. POSTOPERATIVE DIAGNOSIS(ES): Right knee degenerative joint disease. PROCEDURE: Right total knee arthroplasty. SURGEON: Brady Crum DO HYDROSTATIC TUBING TESTER: Ebonie Riley PA-C INDICATIONS: The patient is a 61-year-old female with right knee severe degenerative arthritis with failed conservative measures and wished to proceed with a right total knee arthroplasty. She has done well after her left total knee arthroplasty, although she did need a manipulation under anesthesia. We discussed the risks, benefits, and possible complications of surgery including, but not limited to, injury to nerves and vessels, infection, bleeding, incomplete relief of symptoms, stiffness, need for additional procedures. The patient had good understanding. All questions were answered. She wished to proceed. A surgical manager was required for the successful completion of the procedure. PROCEDURE IN DETAIL: The patient is brought to the operating room. She was given preoperative antibiotic, 1 g TXA preoperatively and a spinal anesthetic. The right lower extremity was sterilely prepped and draped. A tourniquet was used for hemostasis. An incision was made longitudinally over the anterior knee. Dissection was carefully carried through subcutaneous tissue. Electrocautery was used for hemostasis. A split was then made in the quad tendon leaving a cuff of tissue for repair. This was taken along the medial retinaculum onto the proximal medial tibial base. A small amount of subperiosteal medial release was performed. A portion of the fat pad was then removed. The patella was everted. The femur was instrumented with an intramedullary melva and a 5 degree distal valgus cut angle was chosen. I elected to cut 9 mm of distal femur. However, this seemed inadequate, and 11 mm was ultimately chosen. I then addressed the tibia with an extramedullary tibial cutting guide placed parallel to the long axis of the tibia. The tibial cut was performed, completed with an osteotome and removed. The medial and lateral menisci were then removed. The femur was sized, felt to be a size 5, with 5 degrees of external rotation. The 4-in-1 cutting block was pinned into position. The cuts were performed and completed with an osteotome. The box cut was then performed. The knee was then trialed with a 5 femur, 3 tibia, with a 6 mm poly which seemed to fit quite nicely, allowed for full flexion, extension with equal gaps medially and laterally. I elected to not resurface the patella as her patella was only 20 mm thick, and I felt that this would over-stuff the patella as well as having the patella fairly good cartilage intact on it. The femur was drilled. The tibia was drilled and punched. The bony surfaces were washed and dried, and the components were cemented into position beginning with the DePuy Attune 3 fixed bearing tibia, followed by the DePuy Attune 5 narrow posterior stabilized femur, and the 6 mm polyethylene posterior stabilized. All excess cement was removed. Once the cement had been allowed to polymerize, the tourniquet was let down. Electrocautery was used for hemostasis. The wound was copiously irrigated and then closed with #1 Surgilon and 0 Vicryl to close the quad tendon and medial retinaculum. The subcu was closed with 2-0 V-Loc, and the skin was closed with a running subcuticular Stratafix suture. A mixture of Exparel and saline was added as an adjunct local anesthetic. Sterile dressings were applied. The patient tolerated the procedure well. Blood loss was 75 cc. POSTOPERATIVE PROTOCOL: Have the patient weightbear to tolerance. Use walker for ambulation. Work aggressively on physical therapy. Will plan to use Percocet 10/325 for postop pain, and aspirin for DVT prophylaxis as she did well with this from the previous surgery.
--- NOTE | 2017-06-08 11:01 | PCM.ANEP1 ---
Post Anesthesia PACU Phase 1 Assessment Vital Signs Vital Signs Date Time Temp Pulse Resp B/P Pulse Ox O2 Delivery O2 Flow Rate FiO2 06/08/17 10:45 60 13 101/60 100 Room Air 06/08/17 10:29 63 18 111/70 100 Room Air 06/08/17 10:15 70 23 133/71 99 Room Air 06/08/17 10:08 19 06/08/17 10:00 37.2 63 16 124/65 100 Room Air 06/08/17 09:55 67 18 122/77 98 Room Air 06/08/17 09:50 67 11 141/76 100 Room Air 06/08/17 09:45 16 06/08/17 09:45 57 18 145/90 100 Room Air 06/08/17 09:41 36.6 67 17 150/83 100 Room Air 06/08/17 06:08 36.0 70 15 119/76 99 Room Air Anesthetic Administered: SAB Level of Alertness: Awake, talking Pain: No Nausea or Vomiting: No CV Function & Hydration Stable: Yes Airway Device: Oxygen Delivery: Room Air Lungs: Clear to Auscultation Dermatome Level: L3,4 (Patella) PACU Phase 2 Assessment Patient Instructions Provided: N/A Bryant Holland MD Jun 08, 2017 11:00
[2017-06-08] MEDS: hydrOXYzine Pamoate 25 mg Capsule PO PRN ×3 (12:08→22:12)
[2017-06-08] MEDS: oxyCODONE-Acetamin 10-325 mg Tablet PO PRN ×3 (12:25→20:51)
[2017-06-08] MEDS: HYDROmorphone 1 mg/mL Inj IVPUSH PRN ×3 (15:23→23:49)
[2017-06-08] MEDS ORDERED: Albuterol HFA 60 Puff 8 Gm Inhaler INHALATION PRN (15:55)
[2017-06-08] MEDS ORDERED: Albuterol 2.5 mg/3 mL Inhalation Solution NEB PRN (16:05)
[2017-06-08] MEDS: Sodium Chloride LOK Flush 10 mL Syringe IV SCH (16:10)
[2017-06-08] MEDS: CeFAZolin Inj 2 GM in IV Premix 1 EACH IV SCH (16:15)
--- NOTE | 2017-06-08 17:30 | NUR ---
Arrival to Floor, Urination Patient arrives to floor from PACU alert and oriented via bed. Patient states she has some pain to the right knee, but denies any numbness or tingling, has brisk capillary refill and good movement. Ordered pain medications administered, SCD in place. Care is ongoing.
[2017-06-08] MEDS: Fluticasone 0.05% 15 Spray/2 Gm 16 Gm Nasal Spray NASAL SCH (20:30)
[2017-06-08] MEDS: Senna-Docusate 8.6-50 mg Tablet PO SCH (20:50)
[2017-06-09 00:02] VITALS: BP 145/77; PULSE 84; RESP 19; O2SAT 99
[2017-06-09] MEDS: Sodium Chloride LOK Flush 10 mL Syringe IV SCH ×3 (00:30→16:30)
[2017-06-09] MEDS: oxyCODONE-Acetamin 10-325 mg Tablet PO PRN ×3 (00:33→12:35)
[2017-06-09] MEDS: CeFAZolin Inj 2 GM in IV Premix 1 EACH IV SCH (00:34)
[2017-06-09] MEDS: hydrOXYzine Pamoate 25 mg Capsule PO PRN ×5 (03:58→20:22)
--- NOTE | 2017-06-09 04:23 | NUR ---
Pain Pt c/o pain 8 to 9 out of 10 over night to right knee. Pt receiving scheduled IV Dilaudid, PO Perc, PO Vistiril, as well as PO Oxy for pain management. Pt has chronic pain r/t arthritis per pt, and takes schedule Q4H Percocet at home. Pt ambulates with 1PA and FWW to BR. Tolerates well. Appetite is increasing, no c/o N/V/CP. A/Ox3, JONES.
[2017-06-09 04:50] VITALS: BP 103/65; PULSE 88; RESP 18; O2SAT 95
[2017-06-09] MEDS: 0.9% Sodium Chloride 1,000 ML IV SCH ×2 (05:40→15:36)
[2017-06-09] MEDS: HYDROmorphone 1 mg/mL Inj IVPUSH PRN ×2 (05:47→10:38)
[2017-06-09 07:33] LABS: BASOPHILS % (AUTO) 0.7 % (0-3); Mean Corpuscular Hemoglobin 26.4 pg (27.0-35.0); Mean Corpuscular Volume 81.9 fL (81-100); NEUTROPHILS % (AUTO) 61.6 % (40-74); Platelet Count 235 bil/L (150-400)
[2017-06-09] MEDS: Senna-Docusate 8.6-50 mg Tablet PO SCH ×2 (08:01→20:06)
[2017-06-09 08:14] VITALS: BP 128/72; PULSE 88; RESP 20; O2SAT 99
[2017-06-09] MEDS: Pantoprazole 20 mg ER24 Tablet PO SCH (08:33)
[2017-06-09] MEDS: Fluticasone 0.05% 15 Spray/2 Gm 16 Gm Nasal Spray NASAL SCH ×2 (08:33→20:07)
--- NOTE | 2017-06-09 09:17 | NUR ---
Social Work: Initial Assessment/Readiness for D/C D: EMR reviewed. Please see Initial Assessment linked to this note for more information. Pt is a 61 year old female admitted [place] for elective right TKA per H&P. Pt's insurance is [facility] Medicaid. PCP is Onelia Ayala MD. Pt discussed in multidisciplinary rounds with Ortho provider, pt is POD 1. Pt is likely to discharge home with outpt PT. PT has evaluated pt, expecting progression to outpt PT. SW met with pt at bedside to conduct initial assessment. Pt was alert and oriented x3. SW explained role and wrote phone number on white board. SW provided [facility] Discharge Planning Checklist and encouraged pt to contact SW for any discharge planning questions. Pt lives at home with her sons in an apartment in [place]. Pt is independent with all ADLs at baseline. Pt uses a cane and walker at baseline. Pt does not drive. Pt has no HH or SNF history. Pt has no LTC or VA benefits. Pt has no DPOA on file, declined information related to this. Pt is likely to d/c home with family to transport via POV. Pt scheduled her outpt PT with PT in [place] with GAUGE MACHINE OPERATOR at bedside. Plan written on pt's whiteboard. Pt agreeable. SW will continue to follow. A: Pt who is independent at baseline and has the capacity for self-care. P: Pt anticipated to discharge home with family to transport via POV. No SW needs identified, no MD orders received at this time. SW will continue to follow for needs until time of discharge. SYEDA Mullins Addendum: 06/09/17 at 0917 by MELCHOR ESPINOSA Amended: Links added.
[2017-06-09 12:38] VITALS: BP 113/71; PULSE 85; RESP 20; O2SAT 97
--- NOTE | 2017-06-09 14:21 | PCM.PNORTH ---
Subjective Date of Service: Jun 09, 2017 Visit Information: Reason for Visit Right Knee Arthritis Surgery/Surgery Date RIGHT TOTAL KNEE 06/08/17 Post-Op Day # 1 Date of Admission: Jun 08, 2017 at 10:58 Hospital Day # Subjective The knee hurts but she is moving it. She has walked in the hallways with PT. Postop General: No Shortness of Breath, No Chest Pain, Good Appetite Pain Management: PO, IV Push Objective Exam Objective Patient is seen sitting up in bed Vital Signs and I/O Vital Sign - Last Date Time Temp Pulse Resp B/P Pulse Ox O2 Delivery O2 Flow Rate FiO2 06/09/17 12:38 36.7 85 20 113/71 97 Room Air Intake and Output 06/08/17 06/08/17 06/09/17 Cumulative From/Thru 15:00 23:00 07:00 05/28/17 08:39 - 06/09/17 04:22 Intake Total 670 ml 400 ml 804 ml 2274 ml Output Total 75 ml 650 ml 725 ml Balance 595 ml -250 ml 804 ml 1549 ml Intake Oral 400 ml 400 ml IV Total 670 ml 804 ml 1874 ml Output Urine Total 650 ml 650 ml Estimated Blood Loss 75 ml 75 ml Lab & Micro Results Laboratory Tests Test 06/09/17 06:37 White Blood Count 5.9th/mm3 (3.8-10.1) Red Blood Count 3.60mil/mm3 (3.90-5.20) Hemoglobin 9.5g/dL (12.0-15.6) Hematocrit 29.5% (35.0-46.0) Mean Corpuscular Volume 81.9fL (81-100) Mean Corpuscular Hemoglobin 26.4pg (27.0-35.0) Mean Corpuscular Hemoglobin Concent 32.2% (32.0-37.0) Red Cell Distribution Width 14.0% (12.3-15.4) Platelet Count 235bil/L (150-400) Neutrophils (%) (Auto) 61.6% (40-74) Lymphocytes (%) (Auto) 20.0% (14-46) Monocytes (%) (Auto) 14.0% (4-12) Eosinophils (%) (Auto) 3.0% (0-5) Basophils (%) (Auto) 0.7% (0-3) Sodium Level 142mEq/L (134-144) Potassium Level 3.7mEq/L (3.5-5.2) Chloride Level 106mEq/L (97-108) Carbon Dioxide Level 21mmol/L (18-29) Blood Urea Nitrogen 9mg/dL (8-27) Creatinine 0.79mg/dL (0.57-1.00) Estimat Glomerular Filtration Rate 106mL/min (>59) Glucose Level 122mg/dL (60-99) Calcium Level 8.6mg/dL (8.5-10.1) Result Diagram: 06/09/1763606/09/17636 General Appearance: Alert, Oriented X3, Cooperative, No Acute Distress Extremities: Distal Pulses Palpable, No Compartment Syndrom Noted, Thigh & Calf Soft/Nontender Postop Sensory Motor: Distal Motor Intact, Distal Sensation Intact, NVI Distally SURGICAL WOUND : Wound Location/Description Right knee: Surgical dressing is clean, dry and intact Incision General Appearance: No Direct Observation Activity: Activity per PT Catheters: None Assessment & Plan Impression POD #1 status post right total knee arthroplasty Problems: Plan Weightbearing: Weightbearing as tolerated with wheeled walker DVT prophylaxis: aspirin 325 mg twice a day 6 weeks Physical therapy for transfers, progressive ambulation, therapeutic exercise Wound care: PA will change dressing on postop day 2 Discharge plan: Discharge home tomorrow. Start outpatient physical therapy next week as scheduled Follow-up plan: In 2 weeks at [facility] with PA for wound check and at [address] Crum with x-rays Pain Management: Dilaudid, Percocet 10/325, oxycodone 5 mg, Vistaril VTE Prophylaxis: SCDs, Other (aspirin 325 mg twice a day) Resuscitation Status: CPR: Attempt Resuscitation [place] Chin PA-C Jun 09, 2017 14:21
[2017-06-09 17:21] VITALS: BP 133/71; PULSE 90; RESP 20; O2SAT 99
--- NOTE | 2017-06-09 19:24 | NUR ---
Pain- Patient consistently complaining of 9-10/10 right knee pain despite all ordered pain meds given as ordered and frequency. I found patient lying in bed with her eyes closed at times when doing my reassessment. She arouses easily, and asks if she can have more pain med. Up with PT and standby assist to chair and commode. Dressing dry and intact.
[2017-06-09 20:43] VITALS: BP 126/80; PULSE 99; RESP 18; O2SAT 97
[2017-06-10 00:19] VITALS: BP 113/70; PULSE 96; RESP 18; O2SAT 94
[2017-06-10] MEDS: Sodium Chloride LOK Flush 10 mL Syringe IV SCH ×2 (00:58→09:24)
[2017-06-10] MEDS: 0.9% Sodium Chloride 1,000 ML IV SCH ×2 (01:40→11:40)
[2017-06-10] MEDS: oxyCODONE-Acetamin 10-325 mg Tablet PO PRN ×3 (02:28→14:33)
[2017-06-10 03:49] VITALS: BP 117/73; PULSE 93; RESP 18; O2SAT 97
--- NOTE | 2017-06-10 04:41 | NUR ---
Pain Patient continues to c/o 9/10 pain "burning in the back of my leg", PO PRN pain medications administered as ordered, did not give oxycodone or Vistaril when due as patient was difficult to arouse. Patient up to BSC, SBA with FWW several times during shift. Applied ice pack to knee for pain. With continued 9/10 pain patient requesting snacks and talking calmly on phone. Call light within reach, will continue to monitor hourly.
[2017-06-10] MEDS: Pantoprazole 20 mg ER24 Tablet PO SCH (06:10)
[2017-06-10 06:11] LABS: BASOPHILS % (AUTO) 0.4 % (0-3); EOSINOPHILS % (AUTO) 3.1 % (0-5); MONOCYTES % (AUTO) 13.4 % (4-12); Mean Corpuscular Hemoglobin 26.7 pg (27.0-35.0); Mean Corpuscular Volume 82.6 fL (81-100); NEUTROPHILS % (AUTO) 68.7 % (40-74); Platelet Count 224 bil/L (150-400)
[2017-06-10] MEDS: hydrOXYzine Pamoate 25 mg Capsule PO PRN ×2 (06:15→12:42)
--- NOTE | 2017-06-10 07:43 | PCM.PNORTH ---
Subjective Date of Service: Jun 10, 2017 Visit Information: Reason for Visit Right Knee Arthritis Surgery/Surgery Date RIGHT TOTAL KNEE 06/08/17 Post-Op Day # 2 Date of Admission: Jun 08, 2017 at 10:58 Hospital Day # Subjective Patient complains of incisional pain. She feels she is moving better than last time. Her walker is too tall. She requests prescription so she is a new one and she would also like to get a bedside commode. Postop General: No Shortness of Breath, No Chest Pain, Good Appetite Pain Management: PO, IV Push Objective Exam Objective Patient is seen sitting up in bed Vital Signs and I/O Vital Sign - Last Date Time Temp Pulse Resp B/P Pulse Ox O2 Delivery O2 Flow Rate FiO2 06/10/17 03:49 37.2 93 18 117/73 97 Room Air Intake and Output 06/09/17 06/09/17 06/10/17 Cumulative From/Thru 15:00 23:00 07:00 05/28/17 08:39 - 06/10/17 05:39 Intake Total 1253 ml 1420 ml 564 ml 5511 ml Output Total 1300 ml 1800 ml 450 ml 4275 ml Balance -47 ml -380 ml 114 ml 1236 ml Intake Oral 1253 ml 1420 ml 400 ml 3473 ml IV Total 164 ml 2038 ml Output Urine Total 1300 ml 1800 ml 450 ml 4200 ml Estimated Blood Loss 75 ml # Voids 3 3 # Bowel Movements 0 0 0 Lab & Micro Results Laboratory Tests Test 06/10/17 05:34 White Blood Count 7.6th/mm3 (3.8-10.1) Red Blood Count 3.45mil/mm3 (3.90-5.20) Hemoglobin 9.2g/dL (12.0-15.6) Hematocrit 28.5% (35.0-46.0) Mean Corpuscular Volume 82.6fL (81-100) Mean Corpuscular Hemoglobin 26.7pg (27.0-35.0) Mean Corpuscular Hemoglobin Concent 32.3% (32.0-37.0) Red Cell Distribution Width 14.1% (12.3-15.4) Platelet Count 224bil/L (150-400) Neutrophils (%) (Auto) 68.7% (40-74) Lymphocytes (%) (Auto) 14.0% (14-46) Monocytes (%) (Auto) 13.4% (4-12) Eosinophils (%) (Auto) 3.1% (0-5) Basophils (%) (Auto) 0.4% (0-3) Sodium Level 141mEq/L (134-144) Potassium Level 3.9mEq/L (3.5-5.2) Chloride Level 106mEq/L (97-108) Carbon Dioxide Level 25mmol/L (18-29) Blood Urea Nitrogen 8mg/dL (8-27) Creatinine 0.71mg/dL (0.57-1.00) Estimat Glomerular Filtration Rate 120mL/min (>59) Glucose Level 131mg/dL (60-99) Calcium Level 8.6mg/dL (8.5-10.1) Result Diagram: 06/10/1734 06/10/17 0534 General Appearance: Alert, Oriented X3, Cooperative, No Acute Distress Extremities: Distal Pulses Palpable, No Compartment Syndrom Noted, Thigh & Calf Soft/Nontender Postop Sensory Motor: Distal Motor Intact, Distal Sensation Intact, NVI Distally SURGICAL WOUND : Wound Location/Description Right knee: Surgical dressing is removed. The wound is well approximated and Steri-Strips are intact. There is no erythema present. There is mild ecchymosis. The knee is cleansed with hydrogen peroxide and then dressed with Silverlon and ABD pad held in place with an elastic bandage. There is mild swelling of the foot. Is soft and nontender. Activity: Activity per PT Catheters: None Assessment & Plan Impression POD #2 status post right total knee notchplasty Problems: Plan Weightbearing: Weightbearing as tolerated with wheeled walker DVT prophylaxis: aspirin 325 mg twice a day 6 weeks Physical therapy for transfers, progressive ambulation, therapeutic exercise Wound care: Dressing is changed today to silverlon, ABD and khalif wrap. Nursing - please apply thigh-high JAMES hose and removed the Khalif wrap. The stockings will hold the dressing in place. Discharge instructions are reviewed the patient Discharge plan: Discharge home today. Start outpatient physical therapy next week as scheduled Follow-up plan: In 2 weeks at [facility] with PA for wound check and at [address] Crum with x-rays Pain Management: Percocet, Vistaril VTE Prophylaxis: SCDs, Other (aspirin 325 mg twice a day) Resuscitation Status: CPR: Attempt Resuscitation Ebonie Riley PA-C Jun 10, 2017 07:42
[2017-06-10] MEDS: Fluticasone 0.05% 15 Spray/2 Gm 16 Gm Nasal Spray NASAL SCH (08:30)
[2017-06-10] MEDS: Senna-Docusate 8.6-50 mg Tablet PO SCH (08:30)
--- NOTE | 2017-06-10 08:34 | PCM.DIORTH ---
Ortho Discharge Instruction Date of Service: Jun 10, 2017 Dates of Hospitalization Date of Hospital Admission Jun 08, 2017 at 10:58 Providers Admitting Physician: Brady Crum DO Primary Care Physician: Onelia Ayala DO Attending Physician: Brady Crum DO Diet Discharge Diet: No restrictions Activity Discharge Activity-General: Be up and about, Balance rest and activity, Elevate & ice extremity Right Lower Extremity: Weight Bearing as tolerated Discharge Assist Device: Front Wheeled Walker Dressing and Incisional Care Discharge Dressing Care: Keep dressing clean, dry & intact Discharge Hygiene: May shower (see instructions below) Additional Instructions Discharge Instructions Weightbearing: Weightbearing as tolerated with wheeled walker DVT prophylaxis: aspirin 325 mg twice a day 6 weeks Every hour of the day that you awake, get up and move - either do exercises, bending and straightening or walking Start outpatient physical therapy next week Ice and elevate the leg 6-10 times a day Wear the compression stockings for 4 weeks on the right leg and for 2 weeks on the left leg Increase your walking a little more each week On Wednesday, you may shower if the wound has no drainage present. Wound may be uncovered to shower. Let soap and water run over the wound, pat dry and apply a new dressing. Re-use the Silver dressing and big pad for 1 week. Get the silver pad wet with the saline in the syringe, handle it only be the corners. Reapply with silver side towards the skin, cover with the big square pad. The compressions stockings will hold it in place. Follow Up Plan Follow Up Plan Follow-up plan: In 2 weeks at [facility] with [facility] for wound check and at [address] Crum with x-rays Call your provider for: Fever, Chills, Shortness of breath, Vomitting, Drainage at incision (that is increasing), Wound redness (that is spreading), Increasing pain (for no reason) Ebonie Riley PA-C Jun 10, 2017 08:34
[2017-06-10] MEDS ORDERED: HYDR-3797 PO (08:40)
[2017-06-10] MEDS ORDERED: OXYC-466 PO ×2 (08:40→16:20)
[2017-06-10] MEDS ORDERED: Aspirin-Expunged Drug, Do Not Renew! PO (08:40)
--- NOTE | 2017-06-10 08:47 | PCM.DC.ORT ---
Discharge Summary Date of Service: Jun 10, 2017 Date of Hospital Admission: Jun 08, 2017 at 10:58 Date of Surgery: Jun 08, 2017 Date of Discharge: Jun 10, 2017 Reason for Hospitalization: Right knee arthritis Procedures Performed: Right total knee arthroplasty Hospital Course: The patient was admitted to the hospital on 06/08/2017 and underwent the above procedure. Antibiotic prophylaxis consisting of Ancef and vancomycin. The surgeon was Dr. Crum. Patient tolerated the procedure well and was transferred to recovery room in stable condition. Patient had physical therapy to work on ambulation and transfers. Weightbearing as tolerated with walker. Pain was managed with Dilaudid, Percocet, Vistaril, Toradol. DVT prophylaxis: Aspirin 325 mg twice a day, SCDs and JAMES hose. Patient progressed well with physical therapy and on POD-2 was discharged home. She is scheduled to start outpatient physical therapy next week Follow-up: at [facility] 2 weeks postop for wound check and at [address] Crum with x-ray Diagnosis at Time of Discharge Status post right total knee arthroplasty Problems: Disposition: Discharged home in stable condition Discharge Instructions: Discharge Activity-General: Be up and about, Balance rest and activity, Elevate & ice extremity Right Lower Extremity: Weight Bearing as tolerated Discharge Assist Device: Front Wheeled Walker Discharge Dressing Care: Keep dressing clean, dry & intact Discharge Hygiene: May shower (see instructions below) Weightbearing: Weightbearing as tolerated with wheeled walker DVT prophylaxis: aspirin 325 mg twice a day 6 weeks Every hour of the day that you awake, get up and move - either do exercises, bending and straightening or walking Start outpatient physical therapy next week Ice and elevate the leg 6-10 times a day Wear the compression stockings for 4 weeks on the right leg and for 2 weeks on the left leg Increase your walking a little more each week On Wednesday, you may shower if the wound has no drainage present. Wound may be uncovered to shower. Let soap and water run over the wound, pat dry and apply a new dressing. Re-use the Silver dressing and big pad for 1 week. Get the silver pad wet with the saline in the syringe, handle it only be the corners. Reapply with silver side towards the skin, cover with the big square pad. The compressions stockings will hold it in place. ([Aspirin-Expunged Drug, Do Not Renew!]) 325 MG TABLET 325 MG PO BID for 6 weeks after surgery Albuterol HFA (Proair HFA) 8.5 Gm Hfa.aer.ad 2 PUFFS INHALATION Q4H PRN PRN For Shortness of Breath Cholecalciferol (Vitamin D3) (Vitamin D3) 1,000 Unit Tab.chew 1,000 UNIT PO DAILY Fluticasone Propionate (Fluticasone Propionate Nasal) 16 Gm [place].susp 1 SPRAY NS BID Gabapentin (Gabapentin) 600 Mg Tablet 600 MG PO TID Hydroxyzine Pamoate (HydrOXYzine Pamoate) 25 Mg Capsule 25 MG PO Q6H PRN PRN For Spasm and/or Restlessness Omeprazole (Omeprazole) 20 Mg Tablet.dr 20 MG PO DAILY oxyCODONE-Acetaminophen 10-325 mg (oxyCODONE-Acetaminophen 10-325 mg) 1 Each Tablet 1 TAB PO Q3H PRN PRN For Pain Max 8 per day Ebonie Riley PA-C Jun 10, 2017 08:47
--- NOTE | 2017-06-10 09:15 | NUR ---
Social Work: Discharge/Orthopedic Rounding D: EMR reviewed. Pt is on day 2 of hospitalization. WALDO met with Ortho who confirmed pt is medically stable for discharge home today. Ortho stated that pt will need new walker. Ortho provided rx. WALDO faxed rx to [employer] who confirmed she would fax to [employer] and that DME may not be delivered to pt at hospital today. WALDO confirmed this with Ortho and Ortho stated pt is safe to discharge home with walker pt currently has until new walker can be delivered to pt's home. A: Pt who is independent at baseline and has the capacity for self-care. P: Pt anticipated to discharge home with family to transport via POV. WALDO received MD order and fax for new walker. SW faxed rx to [employer] who confirmed she would fax to [employer] and that DME may not be delivered to pt at hospital today. WALDO confirmed this with Ortho and Ortho stated pt is safe to discharge home with walker pt currently has until new walker can be delivered to pt's home. SYEDA Koehler Addendum: 06/10/17 at 1305 by DICK MCNAMARA SS [employer] confirmed that she will complete [employer] form necessary for DME to be delivered and covered by Medicaid. [employer] confirmed that bedside commode will not be covered by Medicaid. SW to provide pt with list for DME providers/options to get bedside commode. SYEDA Koehler Addendum: 06/10/17 at 1742 by DICK MCNAMARA SS WALDO provided pt with list for providers with bedside commode and explained this is not covered by insurance. WALDO provided information regarding [facility] and [facility]. Pt agreeable. WALDO confirmed walker to be delivered to pt's home tomorrow. Pt agreeable. SYEDA Koehler
--- NOTE | 2017-06-10 10:53 | NUR ---
DME REQUEST : Spoke with Jani at [facility] [place] and he gave me fax [phone] for walker prescription. He is not sure how long it will take to fill since this is a medicaid request but will work on it and have it delivered to patient's home as soon as possible. Updated [employer] Addendum: 06/10/17 at 1300 by KURT WOLF CM Received phone call from Les at [facility] and he is needing the [employer] form to be completed and faxed back to him to continue with processing of prescription. Bedside commode is not covered by medicaid and this would be an out of pocket expense. Updated [employer]
[2017-06-10 11:21] VITALS: BP 125/77; PULSE 96; RESP 16; O2SAT 97
--- NOTE | 2017-06-10 11:33 | NUR ---
Elevated temperature HISTORY TEACHER took pt's temp at 1121 and it was 37.8. No orders for plain Tylenol on pt's EMAR. Pt has already received Percocet. Called Lyn TRAYLOR and left message regarding pt's increased temperature. Requested return call. Pt scheduled to discharge today. Awaiting new orders.
--- NOTE | 2017-06-10 16:17 | NUR ---
Discharge Pt discharged to home with family via private vehicle at 1610 hrs. PIV removed intact. VSS. No fever. Pain controlled. All personal possessions sent with pt. Compressions stockings applied bilateral legs. Discharge instructions given for follow up and wound care. Pt taught about signs and symptoms of infections. Pt instructed to contact provider for increased pain, fever, chills, or chest pain.
== END 2017-06-10 16:12 | disposition home or self-care (01) | DRG 470 ==
LOC: SAS 05:41 → OSC 10:58
PROVIDERS: ADMIT Orthopaedic Surgery; ATTEND Orthopaedic Surgery
PROC: 0SRC0J9 Replacement of Right Knee Joint with Synthetic Substitute, Cemented, Open Approach (ICD-10-PCS; principal; 2017-06-08 07:30)
DX: M17.11 Unilateral primary osteoarthritis, right knee (principal)